=== PATIENT | male | born 1995 | race Caucasian/White ===

== ENCOUNTER 2018-12-19 06:57 | Day surgery (SDC) | payer OTHER ==
[2018-12-19 08:10] LABS: HEMATOCRIT 37.2 % (37.9-51.0); HEMOGLOBIN 12.9 g/dL (13.5-17.0); MEAN CORPUSCULAR HEMOGLOBIN 30.9 pg (27.0-33.4); MEAN CORPUSCULAR HGB CONC 34.6 g/dL (32.0-36.0); MEAN CORPUSCULAR VOLUME 89 fl (80-97); PLATELET COUNT 166 10^3/uL (150-450); RED BLOOD COUNT 4.16 10^6/uL (4.35-5.55); RED CELL DISTRIBUTION WIDTH 12.4 % (11.5-14.0); WHITE BLOOD COUNT 3.6 10^3/uL (4.0-10.5)
[2018-12-19 08:17] LABS: PROTHROMBIN TIME 13.2 SEC (11.4-15.4)
[2018-12-19 08:18] LABS: PARTIAL THROMBOPLASTIN TIME 30.7 SEC (23.5-35.8)
[2018-12-19 08:35] LABS: BLOOD UREA NITROGEN 13 mg/dL (7-20)
[2018-12-19] MEDS ORDERED: FENTANYL CITRATE INJ/PF 100 MCG/2 ML AMPUL ONE (08:50)
[2018-12-19] MEDS ORDERED: MIDAZOLAM 2 MG/2 ML INJ ONE (08:50)
--- NOTE | 2018-12-19 11:51 | RADIOLOGY REPORT (SQ) ---
EXAM DESCRIPTION: CT BIOPSY RENAL; CT NEEDLE PLACEMENT COMPLETED DATE/TIME: 12/19/2018 9:58 am; 12/19/2018 10:05 am REASON FOR STUDY: PROTEINURIA; PROTEINURIA, RENAL BIOPSY N18.2 CHRONIC KIDNEY DISEASE, STAGE 2 (MIL D) R80.9 PROTEINURIA, UNSPECIFIED COMPARISON: None. RADIATION DOSE: CT Rad equipment meets quality standard of care and radiation dose reduction techniq ues were employed. CTDIvol: 4.0 - 14.0 mGy. DLP: 315 mGy-cm. mGy. LIMITATIONS: None. PROCEDURE: The procedure, risks, benefits, and alternatives were discussed with the patient in the p reprocedural area, and all questions were answered. Informed consent was obtained verbally and in wri ting. The patient was then brought to the CT suite, positioned prone on the CT gurney, and a time-out was p erformed. After that, axial images of the abdomen were obtained for targeting of the lower pole of t he left kidney. Based on review of the axial images an appropriate access site was selected on the l eft flank. The area around selected access site was then prepped and draped 2% chlorhexidine utilizing standard sterile technique. After that, the access site was infiltrated with 1% lidocaine and an incision was made perpendicular to the skin surface with a #11 blade. A 17 gauge coaxial needle was then advanced through the skin incision and into the lower pole of the left kidney utilizing CT fluoroscopic mickie nce. After that, the inner stylet of the coaxial needle was removed and 3 18 gauge core samples were obtained of the lower pole of the left kidney - the samples were collected and submitted to cytopatho logy in formalin. Then, as coaxial needle was removed, the biopsy track was embolized with Gelfoam. After the coaxial needle was removed axial images of the abdomen were repeated and reviewed ; the images demonstrated g as along the biopsy track and no evidence of an acute complication. The patient tolerated the procedure well without immediate complication. At the end of the procedure the patient's condition was unchanged from the preprocedural baseline. IV conscious sedation was administered at the direction of the performing physician by a seth conklin. 1 milligrams of Versed and 50 micrograms of fentanyl were administered. Physiologic monitoring was provided before, during, and after sedation. The total sedation time was 30 minutes. Documentation of clco-mq-lzpi time the performing proceduralist spent monitoring the patient: [address] scanners at this facility use dose modulation, iterative reconstruction, and/or weight based d osing when appropriate to reduce radiation dose to as low as reasonably achievable (ALARA). [facility]: Dose Right [facility]: CareDose [facility]: Dose Right [facility]: Teradose 4D [facility]: [employer] FINDINGS: The post biopsy CT demonstrated no immediate complication. IMPRESSION: Successful CT-guided left kidney cortical biopsy. COMMENT: Patient medication list reviewed:Yes- Quality ID# [id number]:Eligible professional attests to docu menting in the medical record they obtained, updated, or reviewed the patient's current medications.. TECHNICAL DOCUMENTATION: JOB ID: [id number] Quality ID #[id number]: Final reports for procedures using fluoroscopy that document radiation exposure gerardo coleen, or exposure time and number of fluorographic images (if radiation exposure indices are not avail able) Quality ID # [id number]: Final reports with documentation of one or more dose reduction techniques (e.g., Au tomated exposure control, adjustment of the mA and/or kV according to patient size, use of iterative reconstruction technique) 2010 [employer]- All Rights Reserved Reading location - IP/workstation name: [email or web address]
[2018-12-19 12:29] VITALS: BP 111/63
== END 2018-12-19 11:40 | disposition home or self-care (01) ==
LOC: RAD 06:57
PROVIDERS: ATTEND Internal Medicine Nephrology
DX: N18.2 Chronic kidney disease, stage 2 (mild) (principal); R80.9 Proteinuria, unspecified
CPT/HCPCS: 36415; 84520; 82565; 85027; 85610; 85730; 88346 ×2; 88348 ×2; 88313 ×2; 77012; 50200; J2250; J3010